=== PATIENT | female | born 1950 | race Caucasian/White ===

== ENCOUNTER 2018-06-16 09:43 | Day surgery (SDC) | payer MEDICARE, MEDICAID ==
[~2018-06-16] VITALS: Ht 152.4 cm; Wt 125.5 kg
[~2018-06-16 09:43] MED LIST: ALBU18HF2 INH; ASPI-611 PO; ATOR20TA66 PO; ATRIN IH; AZO1OS EACHEYE; BIMA2.5D EACHEYE; CHOL10008 PO; FURO-150 PO; HYDR-565 PO; LORA-512 PO; MELO-100 PO; METO25TA6 PO; MONT10TA21 PO; OMEP20TA5 PO; POTA8CAP9 PO; RALO60TA55 PO; REG10L PO; ROPI1TAB2 PO; SPIIN IH; TIZA4CAP6 PO; [UNRECOGNIZED DRUG - CODE] PO
[2018-06-16 09:57] VITALS: BP 148/70
[2018-06-16] MEDS ORDERED: fentaNYL/PF 50MCG/1 ML 2ML syringe ONE (10:04)
[2018-06-16] MEDS ORDERED: MIDAZolam 5mg/5ml vial ONE (10:04)
[2018-06-16] MEDS ORDERED: HYDR-569 PO (10:09)
[2018-06-16] MEDS ORDERED: METO-292 PO (10:14)
[2018-06-16] MEDS ORDERED: FLUT1AER INH (10:14)
[2018-06-16] MEDS ORDERED: RIVA20TA PO (10:14)
[2018-06-16] MEDS ORDERED: LISI-600 PO (10:14)
[2018-06-16 11:13] VITALS: BP 124/54
[2018-06-16 11:23] VITALS: BP 128/98
[2018-06-16 11:33] VITALS: BP 121/67
[2018-06-16 11:43] VITALS: BP 111/60
== END 2018-06-16 12:00 | disposition home or self-care (01) ==
LOC: GI LAB 09:43
PROVIDERS: ATTEND Internal Medicine Gastroenterology
DX: Z12.11 Encounter for screening for malignant neoplasm of colon (principal); K62.1 Rectal polyp; K64.8 Other hemorrhoids; F17.210 Nicotine dependence, cigarettes, uncomplicated; J44.9 Chronic obstructive pulmonary disease, unspecified; K21.9 Gastro-esophageal reflux disease without esophagitis; E66.01 Morbid (severe) obesity due to excess calories; G47.33 Obstructive sleep apnea (adult) (pediatric); M19.041 Primary osteoarthritis, right hand; M06.9 Rheumatoid arthritis, unspecified; M18.11 Unilateral primary osteoarthritis of first carpometacarpal joint, right hand; Z90.49 Acquired absence of other specified parts of digestive tract; Z96.653 Presence of artificial knee joint, bilateral; Z90.89 Acquired absence of other organs; Z86.14 Personal history of Methicillin resistant Staphylococcus aureus infection; Z79.82 Long term (current) use of aspirin; Z79.891 Long term (current) use of opiate analgesic; Z88.0 Allergy status to penicillin; Z91.048 Other nonmedicinal substance allergy status; Z68.43 Body mass index [BMI] 50.0-59.9, adult; Z86.73 Personal history of transient ischemic attack (TIA), and cerebral infarction without residual deficits; Z79.899 Other long term (current) drug therapy; Z98.890 Other specified postprocedural states; Z80.0 Family history of malignant neoplasm of digestive organs
CPT/HCPCS: 45380; 45385; G0500; J2250; J3010; J7030; A4620